=== PATIENT | female | born 2000 | race African-American/Black ===

== ENCOUNTER 2021-08-17 12:59 | Emergency (ER) | payer SELFPAY ==
[~2021-08-17] VITALS: Ht 165.1 cm; Wt 59.9 kg
[2021-08-17 13:02] VITALS: BP 111/70
--- NOTE | 2021-08-17 14:26 | NUR ---
PT AMBULATED TO BED 4
--- NOTE | 2021-08-17 14:34 | NUR ---
20 Y/O FEMALE BIBA FROM [facility] C/O SOB S/P 1ST COVID VACCINE. NO SIGNS OF RESPIRATORY DISTRESS. +COVID IN MARCH. PT REPORTS HAVING EAR INFECTION, ON AMOXICLLIN X5 DAYS WITHOUT IMPROVEMENT. REPORTS DAUGHTER IS SICK WITH COUGH. PT DENIES N/V/D; SKIN IS PINK/WARM/DRY; AAOX4 WITH EVEN AND STEADY GAIT; LUNGS CLEAR BL; PT DENIES ANY FEVER AT THIS TIME; PATIENT POSITIONED FOR COMFORT; HOB ELEVATED; BEDRAILS UP X2; BED DOWN. PMH:ASTHMA NKDASOB
[2021-08-17] MEDS ORDERED: AMOX50PD9 PO (15:26)
[2021-08-17 15:41] VITALS: BP 113/64
--- NOTE | 2021-08-17 15:41 | NUR ---
Patient discharged with v/s stable. Written and verbal after care instructions given and explained. Patient alert, oriented and verbalized understanding of instructions. Ambulatory with steady gait. All questions addressed prior to discharge. ID band removed. Patient advised to follow up with PMD. Rx of AMOXICILLIN/POTASSIUM given. Patient educated on indication of medication including possible reaction and side effects. Opportunity to ask questions provided and answered.
== END 2021-08-17 15:41 | disposition home or self-care (01) ==
LOC: MED 12:59
DX: T78.49XA Other allergy, initial encounter (principal); F41.9 Anxiety disorder, unspecified; H66.92 Otitis media, unspecified, left ear; Z79.2 Long term (current) use of antibiotics; Y92.89 Other specified places as the place of occurrence of the external cause
CPT/HCPCS: 71045; 99283

== ENCOUNTER 2021-11-10 10:21 | Emergency (ER) | payer OTHER ==
[~2021-11-10] VITALS: Ht 165.1 cm; Wt 61.7 kg
[~2021-11-10 10:21] MED LIST: AMOX50PD9 PO
[2021-11-10 10:24] VITALS: BP 111/66
--- NOTE | 2021-11-10 10:31 | NUR ---
PT AMB TO BED 4.
--- NOTE | 2021-11-10 10:49 | NUR ---
I&D SET UP AT BED SIDE ERMD NOTIFIED.
--- NOTE | 2021-11-10 10:50 | NUR ---
20 y/o female, c/o right axillary abscess and pain for 1 week. pt states pain has worsened pain and states she has had similar abscess on left arm in the past. denies fever, nausea, vomiting, weakness, injury or trauma, or any other medical complaints at this time. pt a&ox4, ambulatory with steady gait. pt states pain is 10/10, sharp with no alleviating factors. pmh: denies allergy: cephalexin
[2021-11-10] MEDS ORDERED: CLIN300C52 PO (11:06)
[2021-11-10] MEDS ORDERED: KETOROLAC 30 MG/ML VIAL IM ONE (11:10)
[2021-11-10 11:37] VITALS: BP 111/66
--- NOTE | 2021-11-10 11:37 | NUR ---
Patient discharged with v/s stable. Written and verbal after care instructions given and explained. Patient alert, oriented and verbalized understanding of instructions. Ambulatory with steady gait. All questions addressed prior to discharge. ID band removed. Patient advised to follow up with PMD. Rx of clindamycin (sent) given. Patient educated on indication of medication including possible reaction and side effects. Opportunity to ask questions provided and answered. gauze pads given, work note given. pt informed not to wash site at this time until f/u for removal
== END 2021-11-10 11:27 | disposition home or self-care (01) ==
LOC: MED 10:21
DX: L03.114 Cellulitis of left upper limb (principal); L02.414 Cutaneous abscess of left upper limb; Z88.1 Allergy status to other antibiotic agents; Z79.899 Other long term (current) drug therapy
CPT/HCPCS: 10060; 81025; 96372; 99283; J1885

== ENCOUNTER 2021-11-12 19:11 | Emergency (ER) | payer OTHER ==
[~2021-11-12] VITALS: Ht 165.1 cm; Wt 61.7 kg
[~2021-11-12 19:11] MED LIST changes: +CLIN300C52 PO
[2021-11-12 19:45] VITALS: BP 112/68
--- NOTE | 2021-11-12 19:48 | NUR ---
TO LOBBY A/W BED AMBULATORY
--- NOTE | 2021-11-12 19:53 | NUR ---
PT SEEN AND ASSESSED BY IN TRIAGE. ERMD CLEARED PT FOR D/C.
[2021-11-12 20:00] VITALS: BP 112/68
--- NOTE | 2021-11-12 20:00 | NUR ---
Patient discharged with v/s stable. Written and verbal after care instructions given and explained. Patient verbalized understanding. Ambulatory with steady gait. All questions addressed prior to discharge. Advised to follow up with PMD.
== END 2021-11-12 20:00 | disposition home or self-care (01) ==
LOC: MED 19:11
DX: L02.411 Cutaneous abscess of right axilla (principal)
CPT/HCPCS: 99281